=== PATIENT | female | born 1960 | race Caucasian/White ===

== ENCOUNTER 2025-09-06 13:25 | Emergency (ER) | payer OTHER ==
[~2025-09-06] VITALS: Ht 157.5 cm; Wt 86.0 kg
[2025-09-06 13:31] VITALS: TEMP 98.2
[2025-09-06 13:40] VITALS: PULSE 167; RESP 16; O2SAT 93
--- NOTE | 2025-09-06 13:43 | ED.PDOC ---
HPI Comments 64 year old female with PMHx HTN, HLD presents to the ED with a chief complaint of elevated HR onset today (09/06/25). Patient states she went to [facility] (Former[facility]) for fungal toe assessment, vitals were checked, advised to go to ED due to elevated HR, in the 170s. Upon ED arrival HR was 170, patient states she has been experiencing lightheadedness since this morning, no other symptoms. She has been under stress recently, is moving to [place] this week. Denies palpitations, chest pain, shortness of breath, headache, blurred vision, numbness/tingling, nausea, vomiting, diarrhea. No other symptoms or modifying factors present at this time. Chief Complaint: Palpitations Time Seen by MD: 13:30 Reviewed Notes: Medications, Allergies Allergies: Coded Allergies: Penicillins (Verified Allergy, Unknown, ITCHY, 09/06/25) Information Source: Patient Mode of Arrival: Ambulatory Severity: Moderate Timing: Hours Duration: Since onset Prehospital treatment: None Onset: At Rest Cardiac Risk Factors: Hyperlipidemia, HTN PE Risk Factors: None History of: None Modifying Factors: Nothing Associated Signs and Symptoms: Other Past Medical History PAST MEDICAL HISTORY: High Lipids, HTN Surgical History: Cholecystectomy, Hysterectomy Surgical History (Other): cervical fusion NEUROLOGIST History: No Pertinent NEUROLOGIST History Family History Family History: Reviewed,noncontributory to illness, No family hx of Cancer, No family hx of DM, No family hx of Heart mildred, No family hx of HTN, No family hx ofKidney mildred, No family hx of Liver mildred, No family hx of Lung mildred, No family hx of Stroke Social History Smoker: Non-Smoker Alcohol: Denies ETOH Use Drugs: Marijuana Lives In: Home Constitutional: denies: chills, diaphoresis, fatigue, fever, malaise, sweats, weakness, others EENTM: denies: blurred vision, double vision, ear bleeding, ear discharge, ear drainage, ear pain, ear ringing, eye pain, eye redness, hearing loss, mouth pain, mouth swelling, nasal discharge, nose bleeding, nose congestion, nose pain, photophobia, tearing, throat pain, throat swelling, voice changes, others Respiratory: denies: cough, hemoptysis, orthopnea, SOB at rest, shortness of breath, SOB with excertion, stridor, wheezing, others Cardiovascular: denies: chest pain, dizzy spells, diaphoresis, Dyspnea on exertion, edema, irregular heart beat, left arm pain, lightheadedness, palpitations, PND, syncope, others Gastrointestinal: denies: abdomen distended, abdominal pain, blood streaked bowels, constipated, diarrhea, dysphagia, difficulty swallowing, hematemesis, melena, nausea, poor appetite, poor fluid intake, rectal bleeding, rectal pain, vomiting, others Genitourinary: denies: abnormal vagina bleeding, burning, dyspareunia, dysuria, flank pain, frequency, hematuria, incontinence, pain, , vagina discharge, urgency, others Neurological: reports: others (lightheadedness); denies: dizziness, fainting, headache, left sided numbness, left sided weakness, numbness, paresthesia, pre- existing deficit, right sided numbness, right sided weakness, seizure, speech problems, tingling, tremors, weakness Musculoskeletal: denies: back pain, gout, joint pain, joint swelling, muscle pain, muscle stiffness, neck pain, others Integumetry: denies: bruises, change in color, change in hair/nails, dryness, laceration, lesions, lumps, rash, wounds, others Allergic/Immunocompromised: denies: Difficulty Healing, Frequent Infections, Hives, Itching, others Hematologic/Lymphatic: denies: anemia, blood clots, easy bleeding, easy bruising, swollen glands, others Endocrine: denies: excessive hunger, excessive sweating, excessive thirst, excessive urination, flushing, intolerance to cold, intolerance to heat, unexplained weight gain, unexplained weight loss, others Psychiatric: denies: anxiety, bipolar disorder, depression, hopeless, panic disorder, schizophrenia, sleepless, suicidal, others All Other Systems: Reviewed and Negative Physical Exam General Appearance: No Apparent Distress, Normal HEENT: Normal ENT Inspection, Pharynx Normal, TMs Normal Neck: Full Range of Motion, Non-Tender, Normal, Normal Inspection Respiratory: Chest Non-Tender, Lungs Clear, No Accessory Muscle Use, No Respiratory Distress, Normal Breath Sounds Cardiovascular: No Edema, No JVD, No Murmur, No Gallop, Normal Peripheral Pulses, Regular Rate/Rhythm Breast Exam: Deferred Gastrointestinal: No Organomegaly, Non Tender, No Pulsatile Mass, Normal Bowel Sounds, Soft Genitalia: Deferred Pelvic: Deferred Rectal: Deferred Extremities: No calf tenderness, Normal capillary refill, Normal inspection, Normal range of motion, Non-tender, No pedal edema Musculoskeletal : Apperance: Normal Neurologic: Alert, ip/mosaic technician II-XII nml as Tested, No Motor Deficits, Normal Affect, Normal Mood, No Sensory Deficits Cerebellar Function: Normal Reflexes: Normal Skin: Dry, Normal Color, Warm Lymphatic: No Adenopathy Was a procedure done? Was a procedure done?: No CP Differential Dx Differential Diagnosis: Angina, MAT, WI Differential Diagnosis: HTN Essential, HTN Accelerated Differential Diagnosis: Gastritis, Myocardial Infarction, Pericarditis X-Ray, Labs, Meds, VS Vital Signs Date Time Temp Pulse Resp B/P (MAP) Pulse Ox O2 Delivery O2 Flow Rate FiO2 09/06/25 17:00 92 09/06/25 15:02 102 09/06/25 14:03 112 09/06/25 14:00 119 14 135/71 (92) 96 09/06/25 13:43 167 16 117/69 (85) 93 09/06/25 13:40 167 16 93 Nasal Cannula* 2 28 09/06/25 13:32 169 09/06/25 13:31 98.2 170 22 97/54 92 98.2 Lab Test 09/06/25 16:59 09/06/25 14:40 09/06/25 14:08 09/06/25 13:46 Range/Units Troponin I High Sensitivity 27 13 7 </=34 ng/L Sodium Level 143 136-145 mmol/L Potassium Level 3.5 3.5-5.1 mmol/L Chloride Level 107 98-107 mmol/L Carbon Dioxide Level 26 20-31 mmol/L Anion Gap 10 5-15 Blood Urea Nitrogen 13 9-23 mg/dL Creatinine 0.86 0.550-1.02 mg/dL Glomerular Filtration Rate Calc 74 >90 mL/min BUN/Creatinine Ratio 15.1 10.0-20.0 Serum Glucose 117 H 74-106 mg/dL Calcium Level 8.9 8.7-10.4 mg/dL Lactic Acid Level 2.0 0.4-2.0 mmol/L White Blood Count 11.3 H 4.4-10.8 10^3/uL Red Blood Count 4.68 4.0-5.20 10^6/uL Hemoglobin 13.7 12.2-16.2 g/dL Hematocrit 40.6 36.0-46.0 % Mean Corpuscular Volume 86.8 80.0-100.0 fL Mean Corpuscular Hemoglobin 29.4 28.0-32.0 pg Mean Corpuscular Hemoglobin Concent 33.8 32.0-36.0 g/dL Red Cell Distribution Width 14.0 11.8-14.3 % Platelet Count 302 140-450 10^3/uL Mean Platelet Volume 7.5 6.9-10.8 fL Neutrophils (%) (Auto) 59.2 37.0-80.0 % Lymphocytes (%) (Auto) 26.9 10.0-50.0 % Monocytes (%) (Auto) 11.3 0.0-12.0 % Eosinophils (%) (Auto) 1.7 0.0-7.0 % Basophils (%) (Auto) 0.9 0.0-2.0 % Neutrophils # (Auto) 6.7 1.6-8.6 10 ^3/uL Lymphocytes # (Auto) 3.1 0.4-5.4 10 ^3/uL Monocytes # (Auto) 1.3 0-1.3 10 ^3/uL Eosinophils # (Auto) 0.2 0-0.8 10 ^3/uL Basophils # (Auto) 0.1 0-0.2 10 ^3/uL Nucleated Red Blood Cells 0.0 % Current Medications Medications (Trade) Dose Ordered Sig/Teagan Route Start Time Stop Time Status Last Admin Sodium Chloride 1,000 ml @ 1,000 mls/hr Q1H ONCE IV 09/06/25 13:45 09/06/25 14:44 DC 09/06/25 13:50 Adenosine (Adenosine) 6 mg ONCE ONCE IV 09/06/25 14:00 09/06/25 14:01 DC 09/06/25 13:58 Sodium Chloride 1,000 ml @ 1,000 mls/hr Q1H ONCE IV 09/06/25 16:45 09/06/25 17:44 DC 09/06/25 16:59 [facility] [id number] [place] [id number] Ph: [phone] DIAGNOSTIC IMAGING Diagnostic Imaging Report : [id number] Signed PATIENT: AZEB DAI ACCT: [id number] UNIT: [id number] : 1960 LOC: ER ROOM / BED: / AGE / SEX: 64 / F ADM STATUS: REG ER SERVICE 37 ORDERING PHYSICIAN: MAXIM POOLE MD PROCEDURE(s): CXRP - CHEST PORTABLE REASON: palpitations ORDER NUMBER(s): [id number], ACCESSION NUMBER(s): [id number] XY CHEST PORTABLE, HISTORY: palpitations COMPARISON: None None TECHNICAL DATA: 1 view of the chest was obtained. FINDINGS: Lines and tubes: None Cardiomediastinal silhouette: normal Pulmonary vasculature: normal Lung expansion: normal Lung airspace: normal Lung interstitium: normal Pleura: normal Pneumothorax: no Bones: Unremarkable Other: no IMPRESSION: No acute intrathoracic abnormality. ATED BY: XANDER FLORES MD DICTATED DATE/TIME: 09/06/251413 SIGNED BY: XANDER FLORES MD SIGNED DATE/TIME: 09/06/251413 CC: Time of 1ST Reevaluation: 14:00 Reevaluation 1ST: Unchanged Patient Education/Counseling: Diagnosis, Treatment, Prognosis Family Education/Counseling: No Family Present SEPSIS Sepsis Screen Date sepsis recognized/suspect: Sep 06, 2025 Time Sepsis recognized/suspect: 1330 Recent Procedure: No On Antibiotic Therapy: No Respiratory Rate >20: Yes Heart Rate >90: Yes Temp<36 C (96.8 F) or >38.3 C: No SBP <90 or MAP <65 mmHG: No New Acute Mental Status Change: No Is the patient on CPAP, BIPAP,: No Physician Orders Electrocardigram (09/06/25 16:35) Chest Portable (09/06/25 13:38) Blood Culture (09/06/25 13:51) Vital Signs Date Time Temp Pulse Resp B/P (MAP) Pulse Ox O2 Delivery O2 Flow Rate FiO2 09/06/25 17:00 92 09/06/25 15:02 102 09/06/25 14:03 112 09/06/25 14:00 119 14 135/71 (92) 96 09/06/25 13:43 167 16 117/69 (85) 93 09/06/25 13:40 167 16 93 Nasal Cannula* 2 28 09/06/25 13:32 169 09/06/25 13:31 98.2 170 22 97/54 92 98.2 Laboratory Tests Test 09/06/25 13:46 09/06/25 14:08 White Blood Count 11.3 10^3/uL (4.4-10.8) H Lactic Acid Level 2.0 mmol/L (0.4-2.0) Medications Medications Dose Ordered Sig/Teagan Route Start Time Stop Time Status Last Admin Dose Admin Adenosine 6 mg ONCE ONCE IV 09/06/25 14:00 09/06/25 14:01 DC 09/06/25 13:58 Sodium Chloride 1,000 ml @ 1,000 mls/hr Q1H ONCE IV 09/06/25 13:45 09/06/25 14:44 DC 09/06/25 13:50 Sodium Chloride 1,000 ml @ 1,000 mls/hr Q1H ONCE IV 09/06/25 16:45 09/06/25 17:44 DC 09/06/25 16:59 Departure 1 Departure Time of Disposition: 17:53 (Patient's workup is benign. Patient is feeling significantly better. Patient's vitals are normal we will discharge patient home with outpatient follow up) Impression: Primary Impression: Palpitations Additional Impression: SVT (supraventricular tachycardia) Disposition: 01 HOME / SELF CARE / HOMELESS Condition: Stable Additional Instructions: You were in SVT. You received adenosine today. You should follow up with the regular doctors. Discharged With: Self Critical Care Note Critical Care Time?: No Stability Stability form required: No Heart Score Heart Score: Heart Score Response (Comments) Value History Slightly Suspicious 0 EKG Normal 0 Age >65 2 Risk Factors >3 or Hx ASHD 2 Troponin Normal limit 0 Total 4 I personally scribed for MAXIM POOLE MD ([email or web address]) on 09/06/25 at 13:43. Electronically submitted by Indu Lewis ([email or web address]). I personally scribed for MAXIM POOLE MD ([email or web address]) on 09/06/25 at 15:16. Electronically submitted by Indu Lewis ([email or web address]). MAXIM POOLE MD Sep 06, 2025 13:43
[2025-09-06] MEDS: SODIUM CHLORIDE 0.9% 1,000 ML IV ONE ×2 (13:50→16:59)
[2025-09-06 13:58] LABS: Hematocrit 40.6 % (36.0-46.0); Hemoglobin 13.7 g/dL (12.2-16.2); Mean Corpuscular Hemoglobin 29.4 pg (28.0-32.0); Mean Corpuscular Volume 86.8 fL (80.0-100.0); Nucleated Red Blood Cells % 0.0 %
[2025-09-06] MEDS: ADENOSINE 6 MG/2 ML INJ IV ONE ×2 (13:58→14:01)
--- NOTE | 2025-09-06 14:16 | DVH ---
XY CHEST PORTABLE, HISTORY: palpitations COMPARISON: None None TECHNICAL DATA: 1 view of the chest was obtained. FINDINGS: Lines and tubes: None Cardiomediastinal silhouette: normal Pulmonary vasculature: normal Lung expansion: normal Lung airspace: normal Lung interstitium: normal Pleura: normal Pneumothorax: no Bones: Unremarkable Other: no IMPRESSION: No acute intrathoracic abnormality.
[2025-09-06 15:05] LABS: Sodium 143 mmol/L (136-145)
[2025-09-06 15:06] LABS: Anion Gap 10 (5-15); Carbon Dioxide 26 mmol/L (20-31)
[2025-09-06 15:07] LABS: Calcium 8.9 mg/dL (8.7-10.4); Chloride 107 mmol/L (98-107); Potassium 3.5 mmol/L (3.5-5.1)
[2025-09-06 15:12] LABS: BUN/Creatinine Ratio 15.1 (10.0-20.0); Blood Urea Nitrogen 13 mg/dL (9-23); Glucose 117 mg/dL (74-106)
--- NOTE | 2025-09-06 15:20 | ECG ---
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
[2025-09-06 18:00] VITALS: BP 139/69; RESP 16; O2SAT 96
[2025-09-06 18:26] VITALS: PULSE 88
--- NOTE | 2025-09-07 00:25 | ECG ---
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
== END 2025-09-06 18:48 | disposition home or self-care (01) ==
LOC: ER 13:25
DX: I47.10 Supraventricular tachycardia, unspecified (principal); R00.2 Palpitations; I10 Essential (primary) hypertension; E78.5 Hyperlipidemia, unspecified; Z90.49 Acquired absence of other specified parts of digestive tract; Z90.710 Acquired absence of both cervix and uterus; Z88.0 Allergy status to penicillin; Z98.1 Arthrodesis status
CPT/HCPCS: 36415; 71045; 80048; 83605; 84484; 85025; 87040; 93005; 96361; 96374; 99285; J0153; J7030